=== PATIENT | female | born 1985 | race Caucasian/White ===

== ENCOUNTER 2017-04-26 22:24 | Emergency (ER) | payer MEDICAID ==
[~2017-04-26] VITALS: Ht 162.6 cm; Wt 81.6 kg
--- NOTE | 2017-04-26 22:35 | NUR ---
pt ambulatory to er bed 10. c/o r buttock pain r/t rle x 1 month. states worst to day and was seen at urgent care early today. was given a shot and pain meds as well as muscle relaxant to no relief. no other complains at this time. awaiting md connelly.
--- NOTE | 2017-04-26 22:44 | NUR ---
dr torres at bedside for eval.
[2017-04-26] MEDS ORDERED: DEXAMETHASONE SOD PHOSPHATE 10 MG/ML VIAL ONE (22:47)
[2017-04-26] MEDS: DEXAMETHASONE SOD PHOSPHATE 4 MG/ML VIAL IM ONE (22:56)
--- NOTE | 2017-04-26 23:01 | NUR ---
Patient discharged to home in stable condition. Written and verbal after care instructions given. Patient verbalizes understanding of instruction. Patient is ambulatory with steady gait, accompanied by significant other.
[2017-04-26 23:19] VITALS: BP 120/78
== END 2017-04-26 23:19 | disposition home or self-care (01) ==
LOC: ER 22:24
DX: M54.31 Sciatica, right side (principal); Z88.5 Allergy status to narcotic agent; Z88.6 Allergy status to analgesic agent
CPT/HCPCS: 96372; 99283; A4606; J1100; Z7610